=== PATIENT | female | born 1990 | race Caucasian/White ===

== ENCOUNTER 2025-01-14 04:25 | Outpatient (CLI) | payer OTHER, SELFPAY ==
[2025-01-14 04:53] VITALS: BP 138/80; PULSE 103; PULSE 96; RESP 18; TEMP 37.3; O2SAT 98
[2025-01-14 04:55] VITALS: BMI 34.9
[2025-01-14 05:21] LABS: Color, Urine Yellow (Yellow); Glucose, Dipstick Normal (Normal); Ketone-Dipstick Negative (Negative); Leukocyte Esterase-Dipstick 500 /ul (Negative); Nitrite-Dipstick Positive (Negative); Occult Blood-Urine 150 /ul (Negative); Protein-Dipstick 15 mg/dl (Negative); Specific Gravity, Urine 1.010 (1.002-1.030); Urine Bilirubin Dipstick Negative (Negative)
[2025-01-14 05:33] LABS: ROM Internal Control Test YES-OK TO RESULT pt. (Internal QC); ROM Patient Test POSITIVE (Negative); Record Kit Lot#, ROM+ K3358
[2025-01-14] MEDS: Betamethasone/Betamethasone 30 MG/5 ML Vial 12 MG IM (05:55)
[2025-01-14] MEDS: 0.9% Saline Lock 10 ML Syringe IV (06:10)
--- NOTE | 2025-01-14 06:58 | HP.PCM.OB_ITS ---
HPI - General General Date of Admission: 01/14/25 Date of Service: 01/14/25 Chief Complaint: leaking of fluid HPI Narrative CAESAR TUTTLE, is a 34 F who presents 1 para 0 with EDC of 03/26/2025 at 29-6/7-week presents with rupture of clear membranes at approximately 3 AM. She denies any vaginal bleeding or contractions. She denies any fevers or chills or other complaints. Her has been complicated by maternal obesity with prepregnancy BMI of 32, Rh-. Allergies: No known drug allergies Past surgical history: Cholecystectomy Medications: vitamin and 81 mg aspirin daily Maternal Data Information Final ANGIE: 03/26/25 Gestational age: 29 6/7 PFSH PFSH Allergy/AdvReac Type Severity Reaction Status Date / Time No Known Allergies Allergy Verified 01/14/25 04:56 NST FHR Rate Baby A Baseline: 150 Variability:: Moderate Accelerations:: 10 x 10 Decelerations:: None NST Reactive:: Appropriate for gestational age FHR Category:: Category I Uterine Activity:: no contractions noted ROS Constitutional Constitutional: Denies fatigue, fever(s) or malaise Eyes Eyes: Denies change in vision ENT HEENT: Denies dizziness or headache(s) Cardiovascular Cardiovascular: Denies chest pain, dyspnea or lightheadedness Respiratory/Chest Respiratory/Chest: Denies cough or dyspnea Gastrointestinal Gastrointestinal: Denies change in bowel habits Genitourinary Genitourinary: Denies burning urination or genital lesions Integumentary Integumentary: Denies rash Neurologic Neurologic: Denies confusion, dizziness, headache(s), numbness or weakness Vital Signs Vital Signs Vital Signs: 01/14/25 04:53 01/14/25 04:53 01/14/25 04:53 Pulse Rate 96 103 H Blood Pressure 138/80 H BP Systolic 138 BP Diastolic 80 Pulse Ox 01/14/25 04:53 Pulse Rate Blood Pressure BP Systolic BP Diastolic Pulse Ox 98 Physical Exam Const alert and no apparent distress General Appearance: cooperative HEENT normocephalic Resp normal respiratory effort Cardio regular rate GI soft to palpation GI Narrative: gravid, nontender, appropriate for gestational age Extremity no calf tenderness General Extremity: edema Skin no wounds Rashes: No rashes noted Psych activity/motor behavior normal Labs Labs Labs: No Data to Display Assessment & Plan (1) premature rupture of membranes (PPROM) delivered, current hospitalization: COMMENT: GBS collected, antibiotic prophylaxis started. Betamethasone given> R/b/a to transport to tertiary care center for speciliazed MFM and care reviewed, questions answered and she and partner consent. Discussed w/ Dr. Pandey at [facility] who accepts transport. Cervical exam not done. Brief US confirms vtx. IV started but labs not drawn, will defer to transport hospital since no evidence of labor. (2) 29 weeks gestation of : (3) Supervision of high risk in third trimester:
[2025-01-14] MEDS: Ampicillin 2 GM in 0.9% Normal Saline (100mL MB+) 100 ML IV (07:49)
[2025-01-14 07:50] VITALS: RESP 13; TEMP 36.9
[2025-01-14 07:51] VITALS: BP 139/75; PULSE 104
== END 2025-01-14 08:35 | disposition short-term general hospital (02) ==
LOC: WPOUT 04:32 → WP 04:33
PROVIDERS: PCP Family Medicine; Referring Provider Obstetrics & Gynecology; Visit Provider Obstetrics & Gynecology
DX: O42.013 Preterm premature rupture of membranes, onset of labor within 24 hours of rupture, third trimester (principal); O99.213 Obesity complicating pregnancy, third trimester; O09.93 Supervision of high risk pregnancy, unspecified, third trimester; Z3A.29 29 weeks gestation of pregnancy; Z79.82 Long term (current) use of aspirin
CPT/HCPCS: 96365; 59025; 59050; 76815; 81002; 84112; 87081; 87653; 96372; 99221; A4216; G0378; J0702